=== PATIENT | male | born 1970 | race Hispanic/Latino ===

== ENCOUNTER → 2019-05-12 | Day surgery (SDC) | payer OTHER ==
[2019-05-07 11:20] LABS: BASOPHILS # (AUTO) 0.1 (0.0-0.1); BASOPHILS % 1.5 % (0.0-1.0); EOSINOPHILS # (AUTO) 0.2 (0.0-0.4); EOSINOPHILS % 3.4 % (0.0-6.0); HEMATOCRIT 38.3 % (38.2-49.6); HEMOGLOBIN 13.4 g/dL (14.0-18.0); LYMPHOCYTES # (AUTO) 2.6 (1.0-3.2); LYMPHOCYTES % 42.1 % (18.0-39.1); MEAN CORPUSCULAR HEMOGLOBIN 32.4 pg (28-32); MEAN CORPUSCULAR VOLUME 92.7 fL (81-99); MONOCYTES # (AUTO) 0.6 (0.2-0.8); MONOCYTES % 10.2 % (4.4-11.3); NEUTROPHILS # (AUTO) 2.6 (2.1-6.9); NEUTROPHILS % 42.5 % (38.7-80.0); PLATELET COUNT 266 x10e3/uL (140-360); RED BLOOD COUNT 4.13 x10e6/uL (4.3-5.7); RED CELL DISTRIBUTION WIDTH 13.3 % (11.7-14.4)
[2019-05-07 11:33] LABS: ALANINE AMINOTRANSFERASE 29 IU/L (0-55); ALBUMIN 4.4 g/dL (3.5-5.0); ALBUMIN/GLOBULIN RATIO 1.5 (0.8-2.0); ALKALINE PHOSPHATASE 63 IU/L (40-150); ANION GAP 15.6 mmol/L (8-16); BLOOD UREA NITROGEN 13 mg/dL (7-26); BUN/CREATININE RATIO 16 (6-25); CALCIUM 9.9 mg/dL (8.4-10.2); CARBON DIOXIDE 25 mmol/L (22-29); CHLORIDE 101 mmol/L (98-107); EST GLOMERULAR FILTRATION RATE > 60 ML/MIN (60-); GLUCOSE 80 mg/dL (74-118); POTASSIUM 4.6 mmol/L (3.5-5.1); SODIUM 137 mmol/L (136-145)
[~2019-05-12] VITALS: Ht 172.7 cm; Wt 79.8 kg
[~2019-05-12] MED LIST: FENTANYL CITRATE/PF 100MCG/2 ML INJ ONE; HEPARIN SOD (PORCINE) 1000 UNIT/ML 30ML ONE; HEPARIN SOD/SOD CHLORIDE 2,000 ML ONE; IBUPROFEN400 MG PO; IOPAMIDOL 370 MG/ML 200 ML INFUS..BTL INJ ONE; LIDOCAINE HCL 2% LOCAL 20 ML VIAL ONE; MIDAZOLAM HCL 2 MG/2 ML VIAL ONE; NITROGLYCERIN/D5W 200 MCG/ML 250 ML ONE; SODIUM CHLORIDE 0.9% 1000ML 1,000 ML ONE; TYLENOL 4 PO; VERAPAMIL HCL 2.5 MG/ML 2 ML VIAL ONE
--- OUTSIDE RECORDS SUMMARY | 2019-05-12 06:12 | XMS REPORT | Continuity of Care Document ---
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 Name Role Phone [employer] Unavailable Unavailable Problems Problem Status Onset Date Classification Date Reported Comments Source RHABDOMYOLYSIS Active 03/03/2017 [facility] ABD PAIN Active 03/03/2017 [facility] BACK PAIN Active 05/24/2015 [facility] Discharge Diagnosis: Back pain 05/24/2015 05/27/2015 [facility] BACK STRAIN Active [facility] [employer] NEURALGIA/NEURITIS NOS Active [facility] RHABDOMYOLYSIS Active [facility] Medications Medication Details Route Status Patient Instructions Ordering Provider Order Date Source hyoscyamine 0.125 mg sublingual tablet 0.125 mg=1 tab, SL, Q6H, PRN Spasms, # 12 tab, 0 Refill(s) Active 03/04/2017 [facility] Hyoscyamine 0.25 mg, 2 tab, Route: PO, Drug form: TAB, ONCE, Dosing Weight 79.091, kg, PRN Spasm, Start date: 03/04/17 14:38:00 CDTNotes: (Same as: Levsin) Take 30 min before meal Inactive 03/04/2017 [facility] Sodium Chloride 0.154 MEQ/ML Injectable Solution 500 mL, 500 ml/hr, Infuse Over: 1 hr, Route: IV, 500, Drug form: INJ, ONCE, Priority: STAT, Dosing Weight 79.091 kg, Start date: 03/04/17 10:19:00 CDT, Duration: 1 doses or times, Stop date: 03/04/17 10:19:00 CDT Inactive 03/04/2017 [facility] sennosides, LONG-TERM 17.2 mg, 2 tab, Route: PO, Drug Form: TAB, Dosing Weight 79.091, kg, ONCE, NOW, Start date: 03/04/17 9:05:00 CDT, Stop date: 03/04/17 9:05:00 CDTNotes: (Same as: Senokot) Inactive 03/04/2017 [facility] Simethicone 160 mg, 2 tab, Route: CHEW, Drug form: CHEWTAB, TID, Dosing Weight 79.091, kg, PRN Gas, Priority: NOW, Start date: 03/04/17 9:04:00 CDT, Duration: 30 day, Stop date: 04/03/17 9:03:00 CDTNotes: (Same as: Mylicon) Inactive 03/04/2017 [facility] Lactulose 667 MG/ML Oral Solution 20 gm, 30 ml, Route: PO, Drug form: SYRP, TID, Dosing Weight 79.091, kg, Priority: NOW, Start date: 03/04/17 9:03:00 CDT, Duration: 30 day, Stop date: 04/03/17 9:00:00 CDTNotes: (Same as:Chronulac) Inactive 03/04/2017 [facility] Docusate 100 mg, 1 cap, Route: PO, Drug form: CAP, BID, Dosing Weight 79.091, kg, Start date: 03/04/17 9:00:00 CDT, Duration: 30 day, Stop date: 04/02/17 17:00:00 CDTNotes: (Same as: Colace) (Do Not Crush) Inactive 03/04/2017 [facility] pneumococcal capsular polysaccharide type 1 vaccine / pneumococcal capsular polysaccharide type 10A vaccine / pneumococcal capsular polysaccharide type 11A vaccine / pneumococcal capsular polysaccharide type 12F vaccine / pneumococcal capsular polysacchar 0.5 mL, Route: IM, Drug Form: INJ, ONCALL, Start date: 03/04/17 8:00:00 CDT, Duration: 1 doses or timesNotes: (Same as: Pneumovax 23) Refrigerate Inactive 03/04/2017 [facility] Saline Flush 0.9% 10 ml, Route: IVP, Drug Form: INJ, Dosing Weight 79.091, kg, PRN, PRN Line Flush, Start date: 03/04/17 6:53:00 CDT, Duration: 30 day, Stop date: 04/03/17 6:52:00 CDTNotes: (Same as: BD Posiflush) Inactive 03/04/2017 [facility] Acetaminophen 650 mg, 2 tab, Route: PO, Drug form: TAB, Q4H, Dosing Weight 79.091, kg, PRN Pain 1-3/Temp > 100.4 F, Start date: 03/04/17 6:53:00 CDT, Duration: 30 day, Stop date: 04/03/17 6:52:00 CDTNotes: Do not exceed 4 gm/day. (Same as: Tylenol) Inactive 03/04/2017 [facility] Sodium Chloride 0.154 MEQ/ML Injectable Solution 1,000 mL, Rate: 150 ml/hr, Infuse over: 6.7 hr, Route: IV, Dosing Weight 79.091 kg, Total Volume: 1,000, Start date: 03/04/17 6:53:00 CDT, Stop date: 04/03/17 6:52:00 CDT Inactive 03/04/2017 [facility] Acetaminophen 325 MG / Hydrocodone Bitartrate 5 MG Oral Tablet 2 tab, Route: PO, Drug Form: TAB, Dosing Weight 79.091, kg, Q4H, PRN Pain Score 7-10, Start date: 03/04/17 6:53:00 CDT, Duration: 30 day, Stop date: 04/03/17 6:52:00 CDTNotes: (Same as: Wilson 325/5) Do not exceed 4gm/day of acetaminophen. Inactive 03/04/2017 [facility] Ondansetron 4 mg, 2 mL, Route: IVP, Drug form: INJ, Q6H, Dosing Weight 79.091, kg, PRN Nausea & Vomiting, Start date: 03/04/17 6:53:00 CDT, Duration: 30 day, Stop date: 04/03/17 6:52:00 CDTNotes: (Same as: Yoana) MEDICATION WASTE Product Size: 4 mg Product Wasted: ___ mg Inactive 03/04/2017 [facility] Acetaminophen 300 MG / Codeine Phosphate 30 MG Oral Tablet [Tylenol with Codeine #3] 1 - 2 tab, PO, Q6H, PRN Pain, # 32 tab, 0 Refill(s) Active 03/04/2017 [facility] Sodium Chloride 0.154 MEQ/ML Injectable Solution 1,000 mL, Infuse Over: 1 hr, Route: IV, ONCE, Priority: STAT, Dosing Weight 79.091 kg, Start date: 03/04/17 4:55:00 CDT, Duration: 1 doses or times, Stop date: 03/04/17 4:55:00 CDT Inactive 03/04/2017 [facility] Zofran 4 mg, 2 mL, Route: IVP, Drug form: INJ, ONCE, Dosing Weight 79.091, kg, Priority: STAT, Start date: 03/04/17 0:05:00 CDT, Stop date: 03/04/17 0:05:00 CDTNotes: (Same as: Zofran) MEDICATION WASTE Product Size: 4 mg Product Wasted: ___ mg Inactive 03/04/2017 [facility] Morphine 4 mg, 1 mL, Route: IVP, Drug form: SOLN, ONCE, Dosing Weight 79.091, kg, Priority: STAT, Start date: 03/04/17 0:04:00 CDT, Stop date: 03/04/17 0:04:00 CDTNotes: (Same as:MORPhine Sulfate) Inactive 03/04/2017 [facility] Sodium Chloride 0.154 MEQ/ML Injectable Solution 1,000 mL, 1000 ml/hr, Infuse Over: 1 hr, Route: IV, 1,000, Drug form: INJ, ONCE, Priority: STAT, Dosing Weight 79.091 kg, Start date: 03/04/17 0:04:00 CDT, Duration: 1 doses or times, Stop date: 03/04/17 0:04:00 CDT Inactive 03/04/2017 [facility] Cyclobenzaprine hydrochloride 10 MG Oral Tablet [Flexeril] 10 mg, PO, TID, PRN Muscle Spasm, X 10 day, # 30 tab, 0 Refill(s) Active 05/24/2015 [facility] tramadol hydrochloride 50 MG Oral Tablet [Ultram] 1 - 2 tabs, PO, Q6H, PRN as needed for pain, X 5 day, # 30 tab, 0 Refill(s) Active 05/24/2015 [facility] Flexeril 10 mg, Route: PO, ONCE, Dosing Weight 81.818, kg, Priority: STAT, Start date: 05/24/15 14:33:00, Stop date: 05/24/15 14:33:00 Inactive 05/24/2015 [facility] Acetaminophen 325 MG / Hydrocodone Bitartrate 10 MG Oral Tablet [Wilson 10/325] 1 tab, Route: PO, Dosing Weight 81.818, kg, ONCE, Start date: 05/24/15 14:32:00, Stop date: 05/24/15 14:32:00 Inactive 05/24/2015 [facility] Ketorolac 60 mg, Route: IM, Drug form: INJ, ONCE, Dosing Weight 81.818, kg, Priority: STAT, Start date: 05/24/15 14:32:00, Stop date: 05/24/15 14:32:00 Inactive 05/24/2015 [facility] Allergies, Adverse Reactions, Alerts No Known Medication Allergies Immunizations No Data Provided for This Section Results Order Name Results Value Reference Range Date Interpretation Comments Source CARDIAC ENZYMES Total CK 6293 12 - 191 03/04/2017 [facility] CARDIAC ENZYMES Total CK 6980 12 - 191 03/04/2017 [facility] CARDIAC ENZYMES Troponin-I <0.02 0.00 - 0.40 03/04/2017 [facility] CARDIAC ENZYMES CK MB 14.4 0.5 - 3.6 03/04/2017 [facility] CARDIAC ENZYMES CK MB Index 0.2 0.0 - 2.5 03/04/2017 [facility] CHEM PANEL eGFR 103 03/04/2017 Result Comment: The eGFR is calculated using the CKD-EPI formula. In most young, healthy individuals the eGFR will be >90 mL/min/1.73m2. The eGFR declines with age. An eGFR of 60-89 may be normal in some populations, particularly the elderly, for whom the CKD-EPI formula has not been extensively validated. Use of the eGFR is not recommended in the following populations:

Individuals with unstable creatinine concentrations, including patients and those with serious co-morbid conditions.

Patients with extremes in muscle mass or diet.

The data above are obtained from the National Kidney Disease Education Program (NKDEP) which additionally recommends that when the eGFR is used in patients with extremes of body mass index for purposes of drug dosing, the eGFR should be multiplied by the estimated BMI. [facility] CHEM PANEL Alk Phos 63 39 - 136 03/04/2017 [facility] CHEM PANEL Bili Total 0.2 0.2 - 1.3 03/04/2017 [facility] CHEM PANEL AST 180 0 - 37 03/04/2017 [facility] CHEM PANEL Albumin Lvl 3.3 3.5 - 5.0 03/04/2017 [facility] CHEM PANEL ALT 55 0 - 65 03/04/2017 [facility] CHEM PANEL Total Protein 6.1 6.4 - 8.4 03/04/2017 [facility] CHEM PANEL CO2 26 24 - 32 03/04/2017 [facility] CHEM PANEL Calcium Lvl 8.3 8.5 - 10.5 03/04/2017 [facility] CHEM PANEL Potassium Lvl 3.5 3.5 - 5.1 03/04/2017 [facility] CHEM PANEL Chloride Lvl 107 95 - 109 03/04/2017 [facility] CHEM PANEL Sodium Lvl 142 135 - 145 03/04/2017 [facility] CHEM PANEL BUN 16 7 - 22 03/04/2017 [facility] CHEM PANEL Creatinine Lvl 0.85 0.50 - 1.40 03/04/2017 [facility] CHEM PANEL Glucose Lvl 101 70 - 99 03/04/2017 [facility] CHEM PANEL A/G Ratio 1.2 0.7 - 1.6 03/04/2017 [facility] CHEM PANEL B/C Ratio 19 6 - 25 03/04/2017 [facility] CHEM PANEL Globulin 2.8 2.7 - 4.2 03/04/2017 [facility] CHEM PANEL AGAP 12.5 10.0 - 20.0 03/04/2017 [facility] CHEM PANEL Lipase Lvl 208 73 - 393 03/04/2017 [facility] HEMATOLOGY MPV 8.7 7.4 - 10.4 03/04/2017 [facility] HEMATOLOGY RBC 4.25 4.70 - 6.10 03/04/2017 [facility] HEMATOLOGY WBC 9.7 3.7 - 10.4 03/04/2017 [facility] HEMATOLOGY MCV 91.8 80.0 - 94.0 03/04/2017 [facility] HEMATOLOGY Hct 39.0 42.0 - 54.0 03/04/2017 [facility] HEMATOLOGY Hgb 13.7 14.0 - 18.0 03/04/2017 [facility] HEMATOLOGY Platelet 250 133 - 450 03/04/2017 [facility] HEMATOLOGY RDW 13.2 11.5 - 14.5 03/04/2017 [facility] HEMATOLOGY MCHC 35.2 32.0 - 36.0 03/04/2017 [facility] MCH 32.3 27.0 - 31.0 03/04/2017 [facility] HEMATOLOGY Monocytes # 1.0 0.0 - 0.8 03/04/2017 [facility] HEMATOLOGY Lymphocytes # 4.1 1.0 - 5.5 03/04/2017 [facility] HEMATOLOGY Segs-Bands # 4.2 1.5 - 8.1 03/04/2017 [facility] HEMATOLOGY Basophils 1.2 0.0 - 1.0 03/04/2017 [facility] HEMATOLOGY Eosinophils 3.5 0.0 - 4.0 03/04/2017 [facility] HEMATOLOGY Basophils # 0.1 0.0 - 0.2 03/04/2017 [facility] HEMATOLOGY Eosinophils # 0.3 0.0 - 0.5 03/04/2017 [facility] HEMATOLOGY Monocytes 10.6 2.0 - 12.0 03/04/2017 [facility] HEMATOLOGY Lymphocytes 42.0 20.0 - 40.0 03/04/2017 [facility] HEMATOLOGY Segs 42.7 45.0 - 75.0 03/04/2017 [facility] URINE AND STOOL UA Turbidity Clear (03/04/17 12:20 AM) Clear 03/04/2017 [facility] URINE AND STOOL UA pH 6.0 5.0 - 8.0 03/04/2017 [facility] URINE AND STOOL UA Spec Grav 1.006 <=1.030 03/04/2017 [facility] URINE AND STOOL UA Sq Epi None Seen 03/04/2017 [facility] URINE AND STOOL UA RBC 1 0 - 2 03/04/2017 [facility] URINE AND STOOL UA WBC <1 0 - 5 03/04/2017 [facility] URINE AND STOOL UA Leuk Est Negative (03/04/17 12:20 AM) Negative 03/04/2017 [facility] URINE AND STOOL UA Nitrite Negative (03/04/17 12:20 AM) Negative 03/04/2017 [facility] URINE AND STOOL UA Blood Negative (03/04/17 12:20 AM) Negative 03/04/2017 [facility] URINE AND STOOL UA Bili Negative *NA* (03/04/17 12:20 AM) Negative 03/04/2017 [facility] URINE AND STOOL UA Ketones Negative mg/dL Negative mg/dL 03/04/2017 [facility] URINE AND STOOL UA Glucose Negative mg/dL Negative mg/dL 03/04/2017 [facility] URINE AND STOOL UA Protein Negative mg/dL Negative mg/dL 03/04/2017 [facility] URINE AND STOOL UA Color Ltyellow 03/04/2017 [facility] URINE AND STOOL UA Urobilinogen <=1.0 mg/dL 0.1 - 1.0 03/04/2017 [facility] Pathology Reports No Data Provided for This Section Diagnostic Reports Report Value Date Source ED Abdomen/Pelvis IV contrast only CT ED Abdomen/Pelvis IV contrast only CT 03/04/2017 12:07 AM CDT Ordering Physician:Jesus Kwong MD CLINICAL HISTORY: [address] dose DLP 1557.54 mGy-cm - low abd pain/Abdominal pain, acute; COMPARISON: None TECHNIQUE: 5 mm thick axial images of the abdomen and pelvis were obtained with IV contrast. . 5 mm thick delayed axial images were obtained. Coronal and sagittal reformations were created. FINDINGS: Visualized lung bases demonstrate minimal bilateral lower lobe dependent groundglass haziness, suggesting alveolar edema. Liver, spleen, pancreas, adrenal glands, and kidneys are normal. Ureters are normal. Bladder is distended. Gallbladder is present. Small hiatal hernia is present. Otherwise, the stomach, small intestine, and colon are normal . Appendix is normal. No mesenteric or retroperitoneal lymphadenopathy is present. No free air or free fluid is present. Bones demonstrate are normal. IMPRESSION: Small hiatal hernia. Otherwise, no acute abnormality of the abdomen or pelvis. SL: SSENDOS-PC 03/04/2017 [facility] Chest 1view DX Exam: Chest X-Ray Clinical Indication: Abdominal pain. Technique: Frontal view of the chest is provided. Findings: Heart and mediastinum are normal. Lungs are clear. There are no pleural effusions. Impression: No acute intrathoracic disease. 03/04/2017 [facility] Spine lumbar 2 or 3 views DX PROCEDURE: Spine lumbar AP lateral REASON FOR EXAM: left side pain CLINICAL INFORMATION Pain, Lumbar region COMPARISON: None. Three views Maintained lumbar spine alignment, vertebral body heights. Maintained disc heights. Spurring anterior to the L4-L5 vertebral bodies. Maintained pedicles, spinous processes. Obscured transverse processes by bowel gas. Lower pelvic phleboliths. IMPRESSION: 1. L4-L5 spurring. SL: 15 05/24/2015 [facility] Consultation Notes No Data Provided for This Section Discharge Summaries No Data Provided for This Section History and Physicals No Data Provided for This Section Vital Signs Vital Sign Value Date Comments Source Systolic (mm Hg) 125 03/04/2017 [facility] Diastolic (mm Hg) 75 03/04/2017 [facility] Respitory Rate 18 03/04/2017 [facility] Temperature Oral (F) 97.6 F 03/04/2017 [facility] Heart Rate 68 03/04/2017 [facility] Heart Rate 62 03/04/2017 [facility] Temperature Oral (F) 97.8 F 03/04/2017 [facility] Respitory Rate 18 03/04/2017 [facility] Systolic (mm Hg) 135 03/04/2017 [facility] Diastolic (mm Hg) 84 03/04/2017 [facility] Systolic (mm Hg) 126 03/04/2017 [facility] Diastolic (mm Hg) 82 03/04/2017 [facility] Temperature Oral (F) 97.5 F 03/04/2017 [facility] Respitory Rate 18 03/04/2017 [facility] Heart Rate 60 03/04/2017 [facility] Weight 79.091 03/04/2017 [facility] BMI Calculated 26.51 03/04/2017 [facility] Height 172.72 cm 03/04/2017 [facility] Systolic (mm Hg) 129 05/24/2015 [facility] Diastolic (mm Hg) 83 05/24/2015 [facility] Respitory Rate 18 05/24/2015 [facility] Temperature Oral (F) 98.3 F 05/24/2015 [facility] Heart Rate 69 05/24/2015 [facility] Weight 81.818 05/24/2015 [facility] BMI Calculated 27.43 05/24/2015 [facility] Height 172.72 cm 05/24/2015 [facility] Systolic (mm Hg) 149 05/24/2015 [facility] Diastolic (mm Hg) 91 05/24/2015 [facility] Temperature Oral (F) 98.2 F 05/24/2015 [facility] Respitory Rate 16 05/24/2015 [facility] Heart Rate 75 05/24/2015 [facility] Encounters Location Location Details Encounter Type Encounter Number Reason For Visit Attending Provider ADM Date DC Date Status Source [facility] [id number] Poly James 05/24/2015 05/24/2015 [facility] OP Therapy Patients [id number] William Rechter 07/05/2015 07/05/2015 [facility] [employer] OP Therapy Patients [id number] William Rechter 07/21/2015 08/20/2015 [facility] [employer] [facility] [employer] OP Therapy Patients [id number] William Rechter 08/23/2015 09/22/2015 [facility] [employer] [facility] Observation [id number] Danielle Chen 03/04/2017 03/05/2017 [facility] Procedures Procedure Code Date Perfomer Comments Source Anesthesia for radical surgery on nose and accessory sinuses [id number] [facility] Bilateral vasectomy [id number] [facility] Circumcision [id number] [facility] Assessment and Plan Assessment and Plan Date Source Extracted from:Title: General Admission H&P and Discharge Author: Danielle Chen MD Date: 03/04/17 Impression and Plan Nontraumatic rhabdomyolysis Acute epigastric pain Probable food poisoning Moderate dehydration PLAN Patient was admitted to observation and hydrated aggressively. At baseline his creatinine was normal. His rhabdomyolysis may well be be chronic due to the nature of his job and him being very active. His CK levels did show a downward trend prior to discharge. Regarding his epigastric pain this resolved and he tolerated the diet. He had a few tablets of hyoscyamine which helped with the pain in the spasming. He had a bowel movement and is passing gas. Patient declines his pain resolved. He was well hydrated with a few liters of normal saline. Patient's abdominal pain has totally resolved at this time he is agreeable to going home and is okay with the Plan. He will follow-up with his primary care physician in 10 days. He has been prescribed a few tablets of hyoscyamine and he will continue his Tylenol threes that he has at home as needed for pain. 03/05/2017 [facility] Plan of Care No Data Provided for This Section Social History Social History Date Source Social History TypeResponse Substance Abuse Use: None. Sexual Sexually active: No. Exercise Exercise duration: 30. Exercise frequency: 1-2 times/week. Exercise type: Walking. Employment/School Status: Employed. Alcohol Current, Type Beer. Frequency: 1-2 times per week. Started age 30 Years. Previous treatment: None. Alcohol use interferes with work or home: No. Drinks more than intended: Yes. Others hurt by drinking: No. Ready to change: Yes. Household alcohol concerns: Yes. Smoking Status Current every day smoker; Type: Cigars; Tobacco use per day: 1; Started at age: 32.0; Previous treatment: None; Ready to change: Yes; Concerns about tobacco use in household: Yes; Exposure to Tobacco Smoke None; Other Tobacco Frequency once a week; Cigarette Smoking Last 365 Days Yes; Reg Smoking Cessation Counseling Yes 03/04/2017 [facility] Social History TypeResponse Smoking Status Light tobacco smoker; Type: Cigarettes; Exposure to Tobacco Smoke None; Cigarette Smoking Last 365 Days Yes; Reg Smoking Cessation Counseling No 05/24/2015 [facility] [employer] Social History TypeResponse Smoking Status Light tobacco smoker; Type: Cigarettes; Exposure to Tobacco Smoke None; Cigarette Smoking Last 365 Days Yes; Reg Smoking Cessation Counseling No 05/24/2015 [facility] History No Data Provided for This Section Advance Directives No Data Provided for This Section Functional Status No Data Provided for This Section
--- OUTSIDE RECORDS SUMMARY | 2019-05-12 06:12 | XMS REPORT | Summary of Care ---
Author Author [facility] Organization [facility] Address Unknown Phone Unavailable Encounter GARDENIA Gonzalez(TC) [id number] Date(s): 03/03/17 - 03/04/17 [facility] [address] [place] [address]- [phone] Discharge Disposition: Home or Self Care Attending Physician: Danielle Chen MD Admitting Physician: Danielle Chen MD Vital Signs 1 2 3 Most recent to oldest [Reference Range]: 172.72 cm (03/03/17 10:40 PM) Height 97.6 DegF (03/04/17 4:23 PM) 97.8 DegF (03/04/17 11:51 AM) 97.5 DegF (03/04/17 8:13 AM) Temperature Oral [96.4-99.1 DegF] 125/75 mmHg (03/04/17 4:23 PM) 135/84 mmHg (03/04/17 11:51 AM) 126/82 mmHg (03/04/17 8:13 AM) Blood Pressure [90-140/60-90 mmHg] 18 BRMIN (03/04/17 4:23 PM) 18 BRMIN (03/04/17 11:51 AM) 18 BRMIN (03/04/17 8:13 AM) Respiratory Rate [14-20 BRMIN] 68 bpm (03/04/17 4:23 PM) 62 bpm (03/04/17 11:51 AM) 60 bpm (03/04/17 8:13 AM) Peripheral Pulse Rate [60-100 bpm] 79.091 kg (03/03/17 10:40 PM) Weight 26.51 m2 (03/03/17 10:40 PM) Body Mass Index Problem List No data available for this section Allergies, Adverse Reactions, Alerts Substance Reaction Severity Status NKDA Active Medications acetaminophen 650 mg, 2 tab, Route: PO, Drug form: TAB, Q4H, Dosing Weight 79.091, kg, PRN Marcial n 1-3/Temp > 100.4 F, Start date: 03/04/17 6:53:00 CDT, Duration: 30 day, Stop date: 04/03/17 6:52:00 CDT Notes: Do not exceed 4 gm/day. (Same as: Tylenol) Start Date: 03/04/17 Stop Date: 03/04/17 Status: Discontinued acetaminophen-hydrocodone 325 mg-5 mg oral tablet 2 tab, Route: PO, Drug Form: TAB, Dosing Weight 79.091, kg, Q4H, PRN Pain Score 7-10, Start date: 03/04/17 6:53:00 CDT, Duration: 30 day, Stop date: 04/03/17 6: 52:00 CDT Notes: (Same as: Pyrites 325/5) Do not exceed 4gm/day of acetaminophen. Start Date: 03/04/17 Stop Date: 03/04/17 Status: Discontinued acetaminophen-hydrocodone 325 mg-5 mg oral tablet 1 tab, Route: PO, Drug Form: TAB, Dosing Weight 79.091, kg, Q4H, PRN Pain Score 4-6, Start date: 03/04/17 6:53:00 CDT, Duration: 30 day, Stop date: 04/03/17 6:5 2:00 CDT Notes: (Same as: Pyrites 325/5) Do not exceed 4gm/day of acetaminophen. Start Date: 03/04/17 Stop Date: 03/04/17 Status: Discontinued docusate 100 mg, 1 cap, Route: PO, Drug form: CAP, BID, Dosing Weight 79.091, kg, Start d ate: 03/04/17 9:00:00 CDT, Duration: 30 day, Stop date: 04/02/17 17:00:00 CDT Notes: (Same as: Colace) (Do Not Crush) Start Date: 03/04/17 Stop Date: 03/04/17 Status: Discontinued hyoscyamine 0.125 mg sublingual tablet 0.125 mg=1 tab, SL, Q6H, PRN Spasms, # 12 tab, 0 Refill(s) Start Date: 03/04/17 Stop Date: 03/07/17 Status: Ordered lactulose 10 g/15 mL oral syrup 20 gm, 30 ml, Route: PO, Drug form: SYRP, TID, Dosing Weight 79.091, kg, Priorit y: NOW, Start date: 03/04/17 9:03:00 CDT, Duration: 30 day, Stop date: 04/03/17 9:00:00 CDT Notes: (Same as:Chronulac) Start Date: 03/04/17 Stop Date: 03/04/17 Status: Discontinued morphine Sulfate 4 mg, 1 mL, Route: IVP, Drug form: SOLN, ONCE, Dosing Weight 79.091, kg, Priorit y: STAT, Start date: 03/04/17 0:04:00 CDT, Stop date: 03/04/17 0:04:00 CDT Notes: (Same as:MORPhine Sulfate) Start Date: 03/04/17 Stop Date: 03/04/17 Status: Completed NS (Bolus) IV 500 mL, 500 ml/hr, Infuse Over: 1 hr, Route: IV, 500, Drug form: INJ, ONCE, Prio rity: STAT, Dosing Weight 79.091 kg, Start date: 03/04/17 10:19:00 CDT, Duration : 1 doses or times, Stop date: 03/04/17 10:19:00 CDT Start Date: 03/04/17 Stop Date: 03/04/17 Status: Completed ondansetron 4 mg, 2 mL, Route: IVP, Drug form: INJ, Q6H, Dosing Weight 79.091, kg, PRN Nause a & Vomiting, Start date: 03/04/17 6:53:00 CDT, Duration: 30 day, Stop date: 04/03/17 6:52:00 CDT Notes: (Same as: Yoana) MEDICATION WASTE Product Size: 4 mgProduct Was natalie: ___ mg Start Date: 03/04/17 Stop Date: 03/04/17 Status: Discontinued Oscimin 0.125 mg sublingual tablet 0.25 mg, 2 tab, Route: PO, Drug form: TAB, ONCE, Dosing Weight 79.091, kg, PRN S pasm, Start date: 03/04/17 14:38:00 CDT Notes: (Same as: Levsin) Take 30 min before meal Start Date: 03/04/17 Stop Date: 03/04/17 Status: Completed pneumococcal 23-valent vaccine 0.5 mL, Route: IM, Drug Form: INJ, ONCALL, Start date: 03/04/17 8:00:00 CDT, Dur ation: 1 doses or times Notes: (Same as: Pneumovax 23) Refrigerate Start Date: 03/04/17 Stop Date: 03/04/17 Status: Canceled Saline Flush 0.9% 10 ml, Route: IVP, Drug Form: INJ, Dosing Weight 79.091, kg, PRN, PRN Line Flush , Start date: 03/04/17 6:53:00 CDT, Duration: 30 day, Stop date: 04/03/17 6:52:0 0 CDT Notes: (Same as: BD Posiflush) Start Date: 03/04/17 Stop Date: 03/04/17 Status: Discontinued senna 17.2 mg, 2 tab, Route: PO, Drug Form: TAB, Dosing Weight 79.091, kg, ONCE, NOW, Start date: 03/04/17 9:05:00 CDT, Stop date: 03/04/17 9:05:00 CDT Notes: (Same as: Senokot) Start Date: 03/04/17 Stop Date: 03/04/17 Status: Completed simethicone 160 mg, 2 tab, Route: CHEW, Drug form: CHEWTAB, TID, Dosing Weight 79.091, kg, P RN Gas, Priority: NOW, Start date: 03/04/17 9:04:00 CDT, Duration: 30 day, Stop date: 04/03/17 9:03:00 CDT Notes: (Same as: Mylicon) Start Date: 03/04/17 Stop Date: 03/04/17 Status: Discontinued Sodium Chloride 0.9% (Bolus) IV 1,000 mL, Infuse Over: 1 hr, Route: IV, ONCE, Priority: STAT, Dosing Weight 79.0 91 kg, Start date: 03/04/17 4:55:00 CDT, Duration: 1 doses or times, Stop date: 03/04/17 4:55:00 CDT Start Date: 03/04/17 Stop Date: 03/04/17 Status: Completed Sodium Chloride 0.9% (Bolus) IV 1,000 mL, Infuse Over: 1 hr, Route: IV, ONCE, Priority: STAT, Dosing Weight 79.0 91 kg, Start date: 03/04/17 4:55:00 CDT, Duration: 1 doses or times, Stop date: 03/04/17 4:55:00 CDT Start Date: 03/04/17 Stop Date: 03/04/17 Status: Completed Sodium Chloride 0.9% (Bolus) IV 1,000 mL, 1000 ml/hr, Infuse Over: 1 hr, Route: IV, 1,000, Drug form: INJ, ONCE, Priority: STAT, Dosing Weight 79.091 kg, Start date: 03/04/17 0:04:00 CDT, Dura tion: 1 doses or times, Stop date: 03/04/17 0:04:00 CDT Start Date: 03/04/17 Stop Date: 03/04/17 Status: Completed sodium chloride 0.9% 1000 ml INJ 1,000 mL 1,000 mL, Rate: 150 ml/hr, Infuse over: 6.7 hr, Route: IV, Dosing Weight 79.091 kg, Total Volume: 1,000, Start date: 03/04/17 6:53:00 CDT, Stop date: 04/03/17 6 :52:00 CDT Start Date: 03/04/17 Stop Date: 03/04/17 Status: Discontinued Tylenol with Codeine #3 oral tablet 1 - 2 tab, PO, Q6H, PRN Pain, # 32 tab, 0 Refill(s) Start Date: 03/04/17 Stop Date: 03/08/17 Status: Ordered Zofran 4 mg, 2 mL, Route: IVP, Drug form: INJ, ONCE, Dosing Weight 79.091, kg, Priority : STAT, Start date: 03/04/17 0:05:00 CDT, Stop date: 03/04/17 0:05:00 CDT Notes: (Same as: Zofran) MEDICATION WASTE Product Size: 4 mgProduct Was natalie: ___ mg Start Date: 03/04/17 Stop Date: 03/04/17 Status: Completed Results ELECTROLYTES Most recent to 1 2 oldest [Reference Range]: Sodium Lvl [135-145 142 mEq/L mEq/L] (03/04/17 12:20 AM) Potassium Lvl 3.5 mEq/L [3.5-5.1 mEq/L] (03/04/17 12:20 AM) Chloride Lvl [95-109 107 mEq/L mEq/L] (03/04/17 12:20 AM) CO2 [24-32 mEq/L] 26 mEq/L (03/04/17 12:20 AM) AGAP [10.0-20.0 12.5 mEq/L mEq/L] (03/04/17 12:20 AM) CHEM PANEL Most recent to 1 2 oldest [Reference Range]: Creatinine Lvl 0.85 mg/dL [0.50-1.40 mg/dL] (03/04/17 12:20 AM) eGFR 103 mL/min/1.73m2 1 *NA* (03/04/17 12:20 AM) BUN [7-22 mg/dL] 16 mg/dL (03/04/17 12:20 AM) B/C Ratio [6-25] 19 (03/04/17 12:20 AM) Glucose Lvl [70-99 101 mg/dL mg/dL] *HI* (03/04/17 12:20 AM) Total Protein 6.1 g/dL [6.4-8.4 g/dL] *LOW* (03/04/17 12:20 AM) Albumin Lvl [3.5-5.0 3.3 g/dL g/dL] *LOW* (03/04/17 12:20 AM) Globulin [2.7-4.2 2.8 g/dL g/dL] (03/04/17 12:20 AM) A/G Ratio [0.7-1.6] 1.2 (03/04/17 12:20 AM) Calcium Lvl 8.3 mg/dL [8.5-10.5 mg/dL] *LOW* (03/04/17 12:20 AM) ALT [0-65 unit/L] 55 unit/L (03/04/17 12:20 AM) AST [0-37 unit/L] 180 unit/L *HI* (03/04/17 12:20 AM) Alk Phos [39-136 63 unit/L unit/L] (03/04/17 12:20 AM) Bili Total [0.2-1.3 0.2 mg/dL mg/dL] (03/04/17 12:20 AM) Lipase Lvl [73-393 208 unit/L unit/L] (03/04/17 12:20 AM) 1Result Comment: The eGFR is calculated using the [...] from the National Kidney Disease Education Program ( NKDEP) which additionally recommends that when the eGFR is used in patients with extremes of body mass index for purposes of drug dosing, the eGFR should be mul tiplied by the estimated BMI. CARDIAC ENZYMES Most recent to 1 2 oldest [Reference Range]: Total CK [12-191 6293 unit/L 6980 unit/L unit/L] *HI* *HI* (03/04/17 9:00 AM) (03/04/17 12:20 AM) CK MB [0.5-3.6 14.4 ng/mL ng/mL] *HI* (03/04/17 12:20 AM) CK MB Index 0.2 [0.0-2.5] (03/04/17 12:20 AM) Troponin-I <0.02 ng/mL [0.00-0.40 ng/mL] (03/04/17 12:20 AM) URINE AND STOOL Most recent to 1 2 oldest [Reference Range]: UA Turbidity [Clear] Clear (03/04/17 12:20 AM) UA Color Ltyellow *NA* (03/04/17 12:20 AM) UA pH [5.0-8.0] 6.0 (03/04/17 12:20 AM) UA Spec Grav 1.006 [<=1.030] (03/04/17 12:20 AM) UA Glucose [Negative Negative mg/dL mg/dL] *NA* (03/04/17 12:20 AM) UA Blood [Negative] Negative (03/04/17 12:20 AM) UA Ketones [Negative Negative mg/dL mg/dL] *NA* (03/04/17 12:20 AM) UA Protein [Negative Negative mg/dL mg/dL] (03/04/17 12:20 AM) UA Urobilinogen <=1.0 mg/dL [0.1-1.0 mg/dL] *NA* (03/04/17 12:20 AM) UA Bili [Negative] Negative *NA* (03/04/17 12:20 AM) UA Leuk Est Negative [Negative] (03/04/17 12:20 AM) UA Nitrite Negative [Negative] (03/04/17 12:20 AM) UA WBC [0-5 /HPF] <1 /HPF (03/04/17 12:20 AM) UA RBC [0-2 /HPF] 1 /HPF (03/04/17 12:20 AM) UA Sq Epi None Seen *NA* (03/04/17 12:20 AM) HEMATOLOGY Most recent to 1 2 oldest [Reference Range]: WBC [3.7-10.4 K/CMM] 9.7 K/CMM (03/04/17 12:20 AM) RBC [4.70-6.10 4.25 M/CMM M/CMM] *LOW* (03/04/17 12:20 AM) Hgb [14.0-18.0 g/dL] 13.7 g/dL *LOW* (03/04/17 12:20 AM) Hct [42.0-54.0 %] 39.0 % *LOW* (03/04/17 12:20 AM) MCV [80.0-94.0 fL] 91.8 fL (03/04/17 12:20 AM) MCH [27.0-31.0 pg] 32.3 pg *HI* (03/04/17 12:20 AM) MCHC [32.0-36.0 35.2 g/dL g/dL] (03/04/17 12:20 AM) RDW [11.5-14.5 %] 13.2 % (03/04/17 12:20 AM) Platelet [133-450 250 K/CMM K/CMM] (03/04/17 12:20 AM) MPV [7.4-10.4 fL] 8.7 fL (03/04/17 12:20 AM) Segs [45.0-75.0 %] 42.7 % *LOW* (03/04/17 12:20 AM) Lymphocytes 42.0 % [20.0-40.0 %] *HI* (03/04/17 12:20 AM) Monocytes [2.0-12.0 10.6 % %] (03/04/17 12:20 AM) Eosinophils [0.0-4.0 3.5 % %] (03/04/17 12:20 AM) Basophils [0.0-1.0 1.2 % %] *HI* (03/04/17 12:20 AM) Segs-Bands # 4.2 K/CMM [1.5-8.1 K/CMM] (03/04/17 12:20 AM) Lymphocytes # 4.1 K/CMM [1.0-5.5 K/CMM] (03/04/17 12:20 AM) Monocytes # [0.0-0.8 1.0 K/CMM K/CMM] *HI* (03/04/17 12:20 AM) Eosinophils # 0.3 K/CMM [0.0-0.5 K/CMM] (03/04/17 12:20 AM) Basophils # [0.0-0.2 0.1 K/CMM K/CMM] (03/04/17 12:20 AM) Immunizations No data available for this section Procedures Procedure Date Related Diagnosis Body Site Anesthesia for radical surgery on nose and accessory sinuses Bilateral vasectomy Circumcision Social History Social History Type Response Substance Abuse Use: None. Sexual Sexually active: [...] Days Yes; Reg Smoking Cessation Counseling Yes Assessment and Plan Extracted from: Title: General Admission H&P and Author: Danielle Chen MD Date: 03/04/17 Discharge Impression and Plan Nontraumatic rhabdomyolysis Acute epigastric [...]
--- OUTSIDE RECORDS SUMMARY | 2019-05-12 06:13 | XMS REPORT | Summary of Care ---
Author Author [facility] [employer] Organization [facility] [email or web address] [facility] Address Unknown Phone Unavailable Encounter HQ Encntr_alijudith(FIN) [id number] Date(s): 08/23/15 - 09/21/[address] [facility] [address] Attending Physician: William Andino MD Vital Signs No data available for this section Problem List No data available for this section Allergies, Adverse Reactions, Alerts Substance Reaction Severity Status NKDA Active Medications No data available for this section Results No data available for this section Immunizations No data available for this section Procedures No data available for this section Social History Social History Type Response Smoking Status Light tobacco smoker; Type: Cigarettes; Exposure to Tobacco Smoke None; Cigarette Smoking Last 365 Days Yes; Reg Smoking Cessation Counseling No Assessment and Plan No data available for this section
--- OUTSIDE RECORDS SUMMARY | 2019-05-12 06:13 | XMS REPORT | Summary of Care ---
Author Author [facility] [employer] Organization [facility] [employer] [facility] Address Unknown Phone Unavailable Encounter HQ Encntr_yeimy(FIN) [id number] Date(s): 07/21/15 - 08/19/15 [email or web address] Discharge Disposition: Home Attending Physician: William Andino [...]
--- OUTSIDE RECORDS SUMMARY | 2019-05-12 06:13 | XMS REPORT | Summary of Care ---
Author Author [facility] Organization [facility] Address Unknown Phone Unavailable Encounter HQ Carlos(TC) [id number] Date(s): 05/24/15 - 05/24/15 [facility] [address] [place] [address] [phone] Discharge Diagnosis: Back pain Discharge Disposition: Home Attending Physician: Poly James DO Vital Signs Most recent to 1 2 oldest [Reference Range]: Height 172.72 cm (05/24/15 1:44 PM) Most recent to 1 2 oldest [Reference Range]: Temperature Oral 98.3 DegF 98.2 DegF [96.4-99.1 DegF] (05/24/15 4:15 PM) (05/24/15 1:44 PM) Most recent to 1 2 oldest [Reference Range]: Blood Pressure 129/83 mmHg 149/91 mmHg [90-140/60-90 mmHg] (05/24/15 4:15 PM) *HI* (05/24/15 1:44 PM) Most recent to 1 2 oldest [Reference Range]: Respiratory Rate 18 BRMIN 16 BRMIN [14-20 BRMIN] (05/24/15 4:15 PM) (05/24/15 1:44 PM) Most recent to 1 2 oldest [Reference Range]: Peripheral Pulse 69 bpm 75 bpm Rate [60-100 bpm] (05/24/15 4:15 PM) (05/24/15 1:44 PM) Most recent to 1 2 oldest [Reference Range]: Weight 81.818 kg (05/24/15 1:44 PM) Most recent to 1 2 oldest [Reference Range]: Body Mass Index 27.43 m2 (05/24/15 1:44 PM) Problem List No data available for this section Allergies, Adverse Reactions, Alerts Substance Reaction Severity Status NKDA Active Medications Flexeril 10 mg, Route: PO, ONCE, Dosing Weight 81.818, kg, Priority: STAT, Start date: 14:33:00, Stop date: 05/24/15 14:33:00 Start Date: 05/24/15 Stop Date: 05/24/15 Status: Completed Flexeril 10 mg oral tablet 10 mg, PO, TID, PRN Muscle Spasm, X 10 day, # 30 tab, 0 Refill(s) Start Date: 05/24/15 Stop Date: 06/03/15 Status: Ordered ketOROLAC 60 mg, Route: IM, Drug form: INJ, ONCE, Dosing Weight 81.818, kg, Priority: STAT , Start date: 05/24/15 14:32:00, Stop date: 05/24/15 14:32:00 Start Date: 05/24/15 Stop Date: 05/24/15 Status: Completed Guadalupe 10/325 oral tablet 1 tab, Route: PO, Dosing Weight 81.818, kg, ONCE, Start date: 05/24/15 14:32:00, Stop date: 05/24/15 14:32:00 Start Date: 05/24/15 Stop Date: 05/24/15 Status: Completed Ultram 50 mg oral tablet 1 - 2 tabs, PO, Q6H, PRN as needed for pain, X 5 day, # 30 tab, 0 Refill(s) Start Date: 05/24/15 Stop Date: 05/29/15 Status: Ordered Results No data available for this section [...]
--- OUTSIDE RECORDS SUMMARY | 2019-05-12 06:13 | XMS REPORT | Summary of Care ---
Author Author [facility] Address Unknown Phone Unavailable Encounter HQ Tiffanyntr_yeimy(FIN) [id number] Date(s): 07/05/15 - 07/05/15 [facility] Attending Physician: William Andino MD Vital [...]
--- OUTSIDE RECORDS SUMMARY | 2019-05-12 06:13 | XMS REPORT ---
Author Author [facility] Address Unknown Phone Unavailable Care Team Providers Care Key Account Representative Name Role Phone DR COSME GARZA Unavailable Unavailable Problems This patient has no known problems. Allergies, Adverse Reactions, Alerts This patient has no known allergies or adverse reactions. Medications This patient has no known medications. Encounters Start Date/Time End Date/Time Encounter Type Admission Type Attending Clinicians Care Facility Care Department Encounter ID 2018-05-10 05:06:00 2018-05-10 10:35:00 [facility] [id number]
[2019-05-12 07:02] VITALS: BP 142/96
[2019-05-12 08:07] VITALS: BP 16/80
--- NOTE | 2019-05-12 14:34 | Operative Report ---
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 PROCEDURES PERFORMED: 1. Left heart catheterization, selective coronary angiography. 2. Deployment of right wrist TR band. COMPLICATIONS: None. RECOMMENDATIONS: Medical therapy. DESCRIPTION OF PROCEDURE: Access obtained in the right radial artery. A 5-Tu[place] sheath was placed. Diagnostic coronary angiogram revealed mild coronary artery disease of 10% luminal irregularities in the right coronary artery and circumflex, left main coronary systems, left anterior descending artery, mid 50% stenosis with mild myocardial bridging. No intervention was deemed necessary. LV end-diastolic pressure of 5. No gradient across the aortic valve on pullback. Right wrist sheath guide removed. TR band applied. The patient discharged home same day. Christian Echols MD KSB/MODL /[id number]
== END | disposition home or self-care (01) ==
LOC: CATH LAB 06:06
PROVIDERS: ATTEND Internal Medicine Interventional Cardiology
DX: I25.118 Atherosclerotic heart disease of native coronary artery with other forms of angina pectoris (principal); R94.39 Abnormal result of other cardiovascular function study; I10 Essential (primary) hypertension; M54.5 Low back pain; F17.200 Nicotine dependence, unspecified, uncomplicated; Z01.812 Encounter for preprocedural laboratory examination; Z82.49 Family history of ischemic heart disease and other diseases of the circulatory system
CPT/HCPCS: 36415; 80053; 85025; 93458; C1769; C1887; J1644; J2001; J2250; J3010; J7030; Q9967